=== PATIENT | male | born 1970 | race Caucasian/White ===

== ENCOUNTER → 2021-08-30 09:21 | Outpatient (BNVA) | payer SELFPAY | PROVIDERS: Visit Provider Physician Assistant | DX: Z02.79 Encounter for issue of other medical certificate (principal) ==

== ENCOUNTER 2023-02-27 10:25 | Outpatient (REF) | payer MEDICAID, SELFPAY ==
[2023-02-27 11:39] LABS: MANUAL DIFF FLAG NO
[2023-02-27 12:05] LABS: Basophils Absolute Auto 0.1 X10*3/uL (0.0-0.2); Basophils Percent Auto 0.6 % (0-2); Eosinophils Absolute Auto 0.2 X10*3/uL (0.0-0.4); Eosinophils Percent Auto 2.7 % (0-4); Hematocrit 41.8 % (42.0-52.0); Hemoglobin 14.3 g/dl (14.0-18.0); Imm Gran Abs Auto 0.04 X10*3/uL (0.00-0.03); Imm Gran Pct Auto 0.5 % (0.0-0.4); Lymphocytes Absolute Auto 2.1 X10*3/uL (1.2-4.9); Lymphocytes Percent Auto 25.5 % (20-40); Mean Corpuscular HGB Conc 34.2 g/dl (31.0-36.0); Mean Corpuscular Hemoglobin 30.8 pg (27.0-33.0); Mean Corpuscular Volume 90.1 fL (80.0-98.0); Mean Platelet Volume 10.1 fL (9.4-12.4); Monocytes Absolute Auto 0.7 X10*3/uL (0.1-1.2); Monocytes Percent Auto 8.1 % (2-11); Neutrophils Absolute Auto 5.2 x10*3/uL (2.0-8.3); Neutrophils Percent Auto 62.6 % (45-73); Platelet Count 250 X10*3/uL (160-400); Red Blood Count 4.64 X10*6/uL (4.60-5.80); Red Cell Distribution Width 13.1 % (11.0-16.0); White Blood Count 8.3 X10*3/uL (4.8-10.8)
[2023-02-27 12:21] LABS: Alanine Aminotransferase 18 U/L (0-40); Albumin Level 4.4 g/dL (3.5-5.0); Alkaline Phosphatase 82 U/L (39-117); Anion Gap 11 (12-20); Aspartate Amino Transferase 18 U/L (5-37); Bilirubin Total 0.4 mg/dL (0.0-1.0); Blood Urea Nitrogen 14 mg/dL (9-16); Calcium 9.3 mg/dL (8.4-10.2); Carbon Dioxide 27 mmol/L (22-29); Chloride 106 mmol/L (96-108); Cholesterol 133 mg/dL; Estimated Glomerular Filt Rate > 60; Glucose Fasting 84 mg/dL (60-99); HDL Cholesterol 48 mg/dL; LDL Cholesterol Calculated 73 mg/dl; Potassium 4.6 mmol/L (3.3-5.1); Sodium 139 mmol/L (135-145); Total Protein 6.4 g/dL (6.5-8.0); Triglycerides 60 mg/dL
[2023-02-27 12:45] LABS: TSH reflex Free T4 1.47 uIU/mL (0.32-4.0)
== END 2023-02-27 10:26 | disposition home or self-care (01) ==
LOC: HO.HMGCLDS 10:25
PROVIDERS: PCP Internal Medicine; Visit Provider Internal Medicine
DX: K40.90 Unilateral inguinal hernia, without obstruction or gangrene, not specified as recurrent (principal); Z72.0 Tobacco use; Z76.89 Persons encountering health services in other specified circumstances
CPT/HCPCS: 36415; 80053; 80061; 84443; 85025

== ENCOUNTER 2023-03-10 13:46 | Outpatient (REF) | payer MEDICAID, SELFPAY ==
--- NOTE | ~2023-03-10 | XR_ITS ---
EXAMINATION: XR CHEST CLINICAL INFORMATION: Z72.0 - Tobacco use COMPARISON: None available. TECHNIQUE: 2 views of the chest were obtained. FINDINGS: There is borderline/mild hyperinflation versus good inspiratory effort. No airspace consolidation or coarsening of the interstitial markings. No groundglass opacity or effusion. Heart size normal. The hilar and mediastinal contours are unremarkable. No acute bony abnormality. XR/XR chest 2V IMPRESSION: - Borderline/mild hyperinflation versus good inspiratory effort. - No airspace consolidation or effusion.
== END 2023-03-10 13:47 | disposition home or self-care (01) ==
LOC: HO.XRAY 13:46
PROVIDERS: PCP Internal Medicine; Visit Provider Surgery
DX: J44.9 Chronic obstructive pulmonary disease, unspecified (principal); K40.90 Unilateral inguinal hernia, without obstruction or gangrene, not specified as recurrent; Z72.0 Tobacco use; Z76.89 Persons encountering health services in other specified circumstances
CPT/HCPCS: 71046; 99202

== ENCOUNTER → 2023-04-10 09:19 | Day surgery (SDC) | payer MEDICAID, SELFPAY ==
--- NOTE | 2023-04-09 09:52 | P.CONAN_ITS ---
Documented by User: Minoo Roland NP 04/09/23 09:53 HPI - Anesthesia Eval Consult details Narrative: 52yo M for Left Hernia Repair Inguinal with mesh [facility] [place] Active Problems Active Problems: All Active Problems (Updated 04/08/23 @ 07:16 by Sarai Marie RN) Inguinal hernia, left (Acute) Establishing care with new doctor, encounter for (Acute) Tobacco abuse (Acute) COPD (chronic obstructive pulmonary disease) (Acute) Past Medical History Medical History (Updated 04/08/23 @ 07:16 by Sarai Marie RN) COPD (chronic obstructive pulmonary disease) Social History Social History Housing: House Patient Tobacco Use Status: Current everyday Tobacco user e-Cigarette/Vaping Use: Never Used Advance Directives: No Advance Directives Information Provided: Yes service: No Current occupational status: employed 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: No Cognitive needs: No Hearing needs: No Vision needs: No Meds Allergies Allergy/AdvReac Type Severity Reaction Status Date / Time No Known Allergies Allergy Verified 03/10/23 13:52 Home Medications Medication Instructions Recorded Confirmed Last Taken Type No Known Home Meds 02/26/23 04/08/23 Unknown History Exam Exam Date and Time: April 09, [id number] Pertinent Lab Results Pertinent Lab Results: Laboratory Tests 02/27/23 02/27/23 10:33 10:33 WBC 8.3 Hgb 14.3 Hct 41.8 L Plt Count 250 Sodium 139 Potassium 4.6 Chloride 106 Carbon Dioxide 27 BUN 14 Creatinine 0.79 Assessment and Plan Assessment Anesthesia Assessment: Chart Reviewed Documented by User: Yevgeniy Whittington MD 04/10/23 09:25 [facility] [place] Past Medical History Medical History (Updated 04/08/23 @ 07:16 by Sarai Marie RN) COPD (chronic obstructive pulmonary disease) Family History Family history of problems with anesthesia: No Surgical History History of Problems with Anesthesia: No Social History Social History Housing: House Patient Tobacco Use Status: Current everyday Tobacco user e-Cigarette/Vaping Use: Never Used Advance Directives: No Advance Directives Information Provided: Yes service: No Current occupational status: employed 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: No Cognitive needs: No Hearing needs: No Vision needs: No Meds Allergies Allergy/AdvReac Type Severity Reaction Status Date / Time No Known Allergies Allergy Verified 03/10/23 13:52 Home Medications Medication Instructions Recorded Confirmed Last Taken Type No Known Home Meds 02/26/23 04/08/23 Unknown History Exam Airway Mallampati Class: II TM Dist: >3cm Heart: rrr Lungs: cta Assessment and Plan Final Anesthetic Review Family History of Problems with Anesthesia: No History of Problems with Anesthesia: No NPO: Yes ASA Class: III Final Preanesthetic Review: No Changes in Pt Med Stat, Meds/Allgs Chart Reviewed, Consent Obtained/Reviewed and Anes Risks/Benef Reviewed Patient Risk: Intermediate Procedure Risk: Intermediate Anesthetic Plan Anesthetic Plan: GA Disposition: Standard PACU
--- NOTE | 2023-04-09 11:21 | MHC.SHP ---
Pre-Procedural Eval Section A Date of Service: 04/09/23 The patient is an INPATIENT: No Changes since office visit: No Cold of Flu in the past 2 weeks, No New Medical Problems, No Changes in Medication and No Patient answered all questions The History & Physical has been completed within 30 days and I have reviewed it.: Yes Section B Chief Complaint: Unilateral inguinal hernia, without obstruction Allergies: Allergies Allergy/AdvReac Type Severity Reaction Status Date / Time No Known Allergies Allergy Verified 03/10/23 13:52 Plan I have reviewed the history and physical and performed a pertinent physical examination on my patient. No changes have occurred unless specified. Time Spent With Patient Time: Total time managing care of this patient today ____ minutes.
--- NOTE | 2023-04-10 10:03 | PC.NURSE ---
pt had coffee with cream @ 8:45-9:[address] Joyner to reschedule. case cancelled.
== END ==
PROVIDERS: PCP Internal Medicine; Visit Provider Surgery
DX: K40.90 Unilateral inguinal hernia, without obstruction or gangrene, not specified as recurrent (principal); Z53.8 Procedure and treatment not carried out for other reasons

== ENCOUNTER 2023-05-04 10:35 | Day surgery (SDC) | payer MEDICAID, SELFPAY ==
[2023-04-29 15:33] VITALS: BMI 19.9
--- NOTE | 2023-05-01 10:12 | HO.ANESPROP2 ---
HPI - Anesthesia Eval Consult details Narrative: 52yo M for Left Hernia Repair Inguinal with mesh Cx'd 04/2023 for non-NPO status PMFSH Active Problems Active Problems: All Active Problems (Updated 04/08/23 @ 07:16 by Sarai Marie RN) Inguinal hernia, left (Acute) Establishing care with new doctor, encounter for (Acute) Tobacco abuse (Acute) COPD (chronic obstructive pulmonary disease) (Acute) Past Medical History Medical History COPD (chronic obstructive pulmonary disease) Family History Family history of problems with anesthesia: No Surgical History Surgical History Surgical history unknown History of Problems with Anesthesia: No Social History Social History Housing: House Patient Tobacco Use Status: Current everyday Tobacco user Tobacco use type: Cigarette Cigarette Packs Per Day: 1 Cigarettes Per Day: 20.0 e-Cigarette/Vaping Use: Never Used service: No Current occupational status: employed 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/hazards: No Cognitive needs: No Hearing needs: No Vision needs: No Meds Allergies Allergy/AdvReac Type Severity Reaction Status Date / Time No Known Allergies Allergy Verified 05/13/23 10:15 Exam Exam Date and Time: May 01, 2023 1012 Height,Weight and Vital Signs: Height 5 ft 7 in Weight 57.606 kg Pertinent Lab Results Pertinent Lab Results: Laboratory Tests 02/27/23 02/27/23 10:33 10:33 WBC 8.3 Hgb 14.3 Hct 41.8 L Plt Count 250 Sodium 139 Potassium 4.6 Chloride 106 Carbon Dioxide 27 BUN 14 Creatinine 0.79 Assessment and Plan Assessment Anesthesia Assessment: Chart Reviewed Final Anesthetic Review Family History of Problems with Anesthesia: No History of Problems with Anesthesia: No
--- NOTE | 2023-05-01 16:28 | MHC.SHP ---
Pre-Procedural Eval Section A Date of Service: 05/01/23 The patient is an INPATIENT: No Changes since office visit: No Cold of Flu in the past 2 weeks, No New Medical Problems, No Changes in Medication and No Patient answered all questions The History & Physical has been completed within 30 days and I have reviewed it.: Yes Section B Chief Complaint: Unilateral inguinal hernia, without obstruction or Allergies: Allergies Allergy/AdvReac Type Severity Reaction Status Date / Time No Known Allergies Allergy Verified 03/10/23 13:52 Plan I have reviewed the history and physical and performed a pertinent physical examination on my patient. No changes have occurred unless specified. Time Spent With Patient Time: Total time managing care of this patient today ____ minutes.
[2023-05-04 10:48] VITALS: BMI 19.6
[2023-05-04 11:02] VITALS: BP 115/70; PULSE 75; RESP 16; TEMP 37.2; O2SAT 99
--- NOTE | 2023-05-04 11:39 | PC.NURSE ---
patient attempted to removed upper denture and unable to take it out, lower denture removed. md kristina mcbride.
--- NOTE | 2023-05-04 12:16 | W.PM.OPN ---
Operative Note Operative Note Date of Service: 05/04/23 Narrative: Preoperative diagnosis: [] Large left inguinal hernia Postop diagnosis: [] Same Procedure [] open repair left inguinal hernia with Bard mesh Surgeon: Ar Certified Ophthalmic Medical Technician: [] latesha Mcgee Indication for surgery: [] Large direct left inguinal hernia. No indirect hernia demonstrated Findings: [] Patient was brought to the operating room, placed on operating table in a supine position, and after adequate level of MAC anesthesia was induced, the left groin was prepped and draped in usual sterile fashion. An ilioinguinal block using 0.5% Marcaine/1% lidocaine along with with infiltration to the incision was performed and a small oblique art inguinal incision was made and carried down through skin, subcutaneous tissue, Kait's fascia. External oblique fibers were opened direction with care to isolate and preserve the ilioinguinal nerve throughout the procedure. Spermatic cord was identified and retracted from the field. Exploration of the cord demonstrated no indirect hernia. A very large direct hernia was dissected free and reduced. A Bard plug was placed in this direct defect and sutured inferiorly to the inguinal ligament and superiorly to the transversalis fascia using interrupted 0 Ethibond suture. At completion the procedure, mesh was in good position with no tension. Wound was irrigated, secured for hemostasis, and closed in the following manner; external oblique fascia was reapproximated using running 2 0 Vicryl suture. Kait's fascia was closed using up to 3-0 Vicryl sutures. Interrupted inverted deep dermal 3-0 Vicryl sutures followed by running subcuticular 4-0 Vicryl sutures were placed. Steri-Strips and sterile dressings were applied. Sponge, needle, and instrument counts were reported to be correct. Patient tolerated procedure well and emerged anesthesia in stable condition. EBL minimal
[2023-05-04 12:25] VITALS: BP 99/54; PULSE 68; RESP 16; TEMP 36.5; O2SAT 98
[2023-05-04 12:40] VITALS: BP 100/58; PULSE 64; RESP 18; TEMP 36.4; O2SAT 97
== END 2023-05-04 13:13 | disposition home or self-care (01) ==
PROVIDERS: PCP Internal Medicine; Visit Provider Surgery
PROC: (CPT 49505; principal; 2023-05-04 12:20)
DX: K40.90 Unilateral inguinal hernia, without obstruction or gangrene, not specified as recurrent (principal); J44.9 Chronic obstructive pulmonary disease, unspecified
CPT/HCPCS: 49505; C1781; J0690; J2250; J3010

== ENCOUNTER 2023-05-13 10:10 | Outpatient (AMB) | payer MEDICAID, SELFPAY ==
[2023-05-13 10:14] VITALS: BP 137/65; PULSE 67; BMI 19.9
--- NOTE | 2023-05-13 10:14 | A.OFFVIS_ITS ---
Intake Vital Signs 05/13/23 10:14 Height 5 ft 7 in Weight 127 lb BMI 19.9 BP 137/65 Blood Pressure Location Rt brachial Position Sitting Pulse 67 Intake Visit Reasons: S/P LIH w/mesh Intake Note: Patient here for s/p LIH w/mesh. Patient reports incisions healing well. Denies oozing or itch. No longer needing pain meds. Manager Service Desk Required: No Accompanied by: Self / Same As Patient Allergies No Known Allergies Allergy (Verified 05/13/23 10:15) HPI HPI Comments History of Present Illness Details Patient presents for follow-up. He is tolerating his diet having normal bowel habits. He is increasing his activity level. He is having incisional discomfort which is improving. 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 Wound clean dry and intact. Patient would not let me remove the Steri-Strips. Assessment & Plan Assessment & Plan (1) Inguinal hernia, left: Comment: Risks, benefits, alternatives of open repair with mesh of left inguinal hernia reviewed the patient and included but not limited to bleeding, infection, recurrence, numbness, pain, scarring, and patient wishes to proceed. All questions were answered. Arrangements will be made for this. We will also obtain preop chest x-ray because the patient's smoking history. Code(s): K40.90 - Unilateral inguinal hernia, without obstruction or gangrene, not specified as recurrent Plan Patient has been given local instructions including avoiding strenuous activities for next few weeks, and will follow-up p.r.n.. Coding Level of Care Code Global (79918) Diagnoses Inguinal hernia, left K40.90
== END 2023-05-13 10:19 | disposition home or self-care (01) ==
PROVIDERS: PCP Internal Medicine; Visit Provider Surgery
DX: K40.90 Unilateral inguinal hernia, without obstruction or gangrene, not specified as recurrent (principal)
CPT/HCPCS: 99024

== ENCOUNTER → 2023-05-13 10:10 | Outpatient (BNVA) | payer MEDICAID, SELFPAY | PROVIDERS: PCP Internal Medicine; Visit Provider Surgery ==

== ENCOUNTER → 2023-10-13 12:53 | Outpatient (BNVA) | payer SELFPAY | PROVIDERS: PCP Internal Medicine; Visit Provider Physician Assistant | DX: Z02.79 Encounter for issue of other medical certificate (principal) ==